=== PATIENT | male | born 2000 | race Hispanic/Latino ===

== ENCOUNTER 2020-11-09 12:11 | Emergency (ER) | payer OTHER ==
[~2020-11-09] VITALS: Ht 182.9 cm; Wt 115.7 kg
[2020-11-09] MEDS ORDERED: PREDNISONE50 MG PO (12:33)
[2020-11-09] MEDS ORDERED: BENADRYL25 M1 PO (12:33)
== END 2020-11-09 13:00 | disposition home or self-care (01) ==
LOC: FSED 12:25
DX: R21 Rash and other nonspecific skin eruption (principal)
CPT/HCPCS: 99282